=== PATIENT | female | born 1980 ===

== ENCOUNTER 2018-11-09 12:14 | Emergency (ER) | payer SELFPAY ==
[~2018-11-09] VITALS: Ht 160 cm; Wt 67.0 kg
[2018-11-09 12:31] VITALS: BP 148/87; PULSE 85; RESP 18; Ht 160 cm; Wt 67.0 kg
== END 2018-11-09 19:35 | disposition left against medical advice (07) ==
LOC: E/R 12:14
DX: Z53.21 Procedure and treatment not carried out due to patient leaving prior to being seen by health care provider (principal)
CPT/HCPCS: 93005